=== PATIENT | female | born 1975 | race American Indian/Alaskan Native ===

== ENCOUNTER 2018-06-21 20:14 | Emergency (ER) | payer OTHER ==
[2018-06-21 20:20] VITALS: BP 156/97
--- NOTE | 2018-06-21 20:45 | Emergency Department Report ---
Blank Doc - Documentation Documentation: 42 y.o. female presents to ER with SOB, sinus pressure, and cough for x 2 days. History of asthma. She took benadryl and cold and flu medicine. She did a breathing treatment this morning and symptoms got worse. cc denies chest pain, wheezing, fever, or difficulty swallowing MSE complete Fast Track for evaluation
== END 2018-06-21 21:50 | disposition left against medical advice (07) ==
LOC: ED 20:14
DX: R06.00 Dyspnea, unspecified (principal); Z53.21 Procedure and treatment not carried out due to patient leaving prior to being seen by health care provider